=== PATIENT | male | born 1950 | race African-American/Black ===

== ENCOUNTER 2020-03-26 05:15 | Inpatient (IN) | payer MEDICARE, OTHER ==
[~2020-03-26] VITALS: Ht 177.8 cm; Wt 84.4 kg
[~2020-03-26 05:15] MED LIST: AMIODARONE HCL200 MG PO; ATENOLOL50 MG PO; BENICAR HCT 401 EAC1 PO; COUMADIN3 MG PO; GABAPENTIN300 MG PO; HYDRALAZINE HC100 MG PO; HYDRALAZINE HCL25 MG PO; ISORDIL TITRADOS5 MG PO; LASIX40 MG PO; LEVAQUIN250 MG PO; LEVEMIR100 UNIT/1 SQ; LIPITOR20 MG PO; METOPROLOL TART25 MG PO; NIFEDIPINE ER60 M1 PO; NOVOLOG100 UNITS/ SQ; PLAVIX75 MG PO; ULTRAM50 MG PO; ZOLPIDEM TARTRA10 MG PO
[2020-03-26] MEDS ORDERED: HYDRALAZINE HCL 20 MG/ML VIAL ONE (06:02)
[2020-03-26] MEDS ORDERED: ALBUTEROL/IPRATROPIUM 3 ML NEB ONE (06:28)
[2020-03-26] MEDS ORDERED: HYDRALAZINE HCL 20 MG/ML VIAL IV STA (06:35)
[2020-03-26 06:40] LABS: B-TYPE NATRIURETIC PEPTIDE2 270.6 pg/mL (0-100)
[2020-03-26] MEDS ORDERED: NITROGLYCERIN 2% OINT 1 GM PKT ONE (06:54)
[2020-03-26] MEDS ORDERED: CLOPIDOGREL75 MG PO (06:56)
[2020-03-26] MEDS ORDERED: OLMESARTAN-HCT1 EAC2 PO (06:56)
[2020-03-26] MEDS ORDERED: BELSOMRA10 MG PO (06:56)
[2020-03-26] MEDS ORDERED: ALBUTEROL/IPRATROPIUM 3 ML NEB NEB ONE (07:00)
[2020-03-26] MEDS ORDERED: NITROGLYCERIN 2% OINT 1 GM PKT TOP ONE (07:00)
[2020-03-26] MEDS ORDERED: HYDRALAZINE HCL 100 MG TABLET PO ONE (07:15)
[2020-03-26 07:22] LABS: BASOPHILS # (AUTO) 0.1 (0.0-0.1); BASOPHILS % 0.7 % (0.0-1.0); EOSINOPHILS # (AUTO) 0.2 (0.0-0.4); HEMATOCRIT 34.8 % (38.2-49.6); LYMPHOCYTES # (AUTO) 2.7 (1.0-3.2); LYMPHOCYTES % 17.5 % (18.0-39.1); MEAN CORPUSCULAR HEMOGLOBIN 32.3 pg (28-32); MEAN CORPUSCULAR HGB CONC 34.5 g/dL (31-35); MEAN CORPUSCULAR VOLUME 93.5 fL (81-99); MONOCYTES # (AUTO) 1.9 (0.2-0.8); MONOCYTES % 12.2 % (4.4-11.3); NEUTROPHILS # (AUTO) 10.5 (2.1-6.9); NEUTROPHILS % 68.2 % (38.7-80.0); PLATELET COUNT 439 x10e3/uL (140-360); RED BLOOD COUNT 3.72 x10e6/uL (4.3-5.7); RED CELL DISTRIBUTION WIDTH 18.2 % (11.7-14.4)
[2020-03-26] MEDS: CEFTRIAXONE SOD 1 GM/NS 50 ML 50 ML IV SCH (07:42)
[2020-03-26] MEDS: AZITHROMYCIN 500MG/NS 250 ML 250 ML IV SCH (07:42)
[2020-03-26] MEDS: ALBUTEROL SULF 0.083% NEB SOLN 3 ML NEB NEB SCH ×4 (08:00→19:08)
[2020-03-26] MEDS ORDERED: SODIUM CHLORIDE 0.9% 1000ML 1,000 ML IV SCH (08:00)
[2020-03-26 08:22] LABS: ALBUMIN 3.6 g/dL (3.5-5.0); ALBUMIN/GLOBULIN RATIO 0.8 (0.8-2.0); ANION GAP 20.7 mmol/L (8-16); CALCIUM 9.5 mg/dL (8.4-10.2); CREATININE, SERUM 2.64 mg/dL (0.72-1.25); POTASSIUM 3.7 mmol/L (3.5-5.1)
[2020-03-26] MEDS ORDERED: TEMAZEPAM 15 MG CAP PO PRN (08:30)
[2020-03-26] MEDS ORDERED: ONDANSETRON HCL INJ 2MG/ML 2ML 2 MG/ML VIAL IV PRN (08:30)
[2020-03-26] MEDS ORDERED: POLYETHYLENE GLYCOL 3350 17 GM PACK PO PRN (08:30)
[2020-03-26] MEDS ORDERED: ACETAMINOPHEN 325 MG TAB PO PRN (08:30)
[2020-03-26] MEDS ORDERED: HYDRALAZINE HCL 20 MG/ML VIAL IV PRN (08:30)
[2020-03-26 08:42] LABS: CREATINE KINASE MB 1.4 ng/mL (0-5.0)
[2020-03-26] MEDS ORDERED: TRAMADOL HCL 50 MG TAB PO PRN (09:00)
[2020-03-26] MEDS ORDERED: DEXTROSE 50% SYRINGE 50 ML IV PRN (09:00)
[2020-03-26 10:00] VITALS: BP 189/61
[2020-03-26 12:00] VITALS: BP 166/50
[2020-03-26] MEDS: NIFEDIPINE CR 30 MG TAB PO SCH (12:30)
[2020-03-26] MEDS: FAMOTIDINE 20 MG/2 ML VIAL IV SCH ×2 (12:30→18:32)
[2020-03-26] MEDS: DOCUSATE SODIUM 100 MG CAP PO SCH ×2 (12:30→17:00)
[2020-03-26] MEDS: METHYLPREDNISOLONE SOD SUCC 40 MG/ML VIAL 1ML IV SCH ×2 (12:30→21:00)
[2020-03-26] MEDS: HYDRALAZINE HCL 25 MG TAB PO SCH ×3 (12:30→21:00)
[2020-03-26] MEDS: CLOPIDOGREL BISULFATE 75 MG TAB PO SCH (12:30)
[2020-03-26 12:43] LABS: CREATINE KINASE MB 1.4 ng/mL (0-5.0)
[2020-03-26] MEDS: INSULIN REGULAR, HUMAN 100 UNIT/1 ML 3ML VIAL SQ SCH ×3 (14:45→21:00)
[2020-03-26] MEDS: IPRATROPIUM BROMIDE 0.02% 2.5 ML NEB NEB SCH ×2 (15:32→19:38)
[2020-03-26 16:00] VITALS: BP 171/48
[2020-03-26] MEDS: FUROSEMIDE 40 MG TAB PO SCH (18:32)
[2020-03-26 20:00] VITALS: BP 167/47
[2020-03-26 20:45] LABS: CREATINE KINASE MB 1.2 ng/mL (0-5.0)
[2020-03-26] MEDS: INSULIN GLARGINE 100 UNITS/ML VIAL SQ SCH (21:00)
[2020-03-26] MEDS: ATORVASTATIN 20 MG TAB PO SCH (21:00)
[2020-03-26 21:56] VITALS: BP 167/47
[2020-03-26] MEDS: ZOLPIDEM TARTRATE 10 MG TAB PO PRN (22:54)
[2020-03-27] VITALS (8 sets, daily range): BP systolic 121–159; BP diastolic 55–69
[2020-03-27] MEDS: IPRATROPIUM BROMIDE 0.02% 2.5 ML NEB NEB SCH ×4 (00:05→19:55)
[2020-03-27] MEDS: ALBUTEROL SULF 0.083% NEB SOLN 3 ML NEB NEB SCH ×6 (00:05→19:55)
[2020-03-27 06:45] LABS: BASOPHILS % 0.1 % (0.0-1.0); HEMATOCRIT 28.6 % (38.2-49.6); HEMOGLOBIN 10.1 g/dL (14.0-18.0); LYMPHOCYTES % 6.8 % (18.0-39.1); MEAN CORPUSCULAR HEMOGLOBIN 32.3 pg (28-32); MEAN CORPUSCULAR HGB CONC 35.3 g/dL (31-35); MEAN CORPUSCULAR VOLUME 91.4 fL (81-99); MONOCYTES # (AUTO) 1.3 (0.2-0.8); MONOCYTES % 8.6 % (4.4-11.3); NEUTROPHILS # (AUTO) 12.5 (2.1-6.9); PLATELET COUNT 392 x10e3/uL (140-360); RED BLOOD COUNT 3.13 x10e6/uL (4.3-5.7); RED CELL DISTRIBUTION WIDTH 17.5 % (11.7-14.4)
[2020-03-27 07:12] LABS: ALBUMIN/GLOBULIN RATIO 0.8 (0.8-2.0); ANION GAP 15.8 mmol/L (8-16); CALCIUM 8.4 mg/dL (8.4-10.2); CREATININE, SERUM 2.49 mg/dL (0.72-1.25); POTASSIUM 3.8 mmol/L (3.5-5.1)
[2020-03-27 07:24] LABS: CHOL/HDL RATIO 3.5 (3.9-4.7); MAGNESIUM 1.8 MG/DL (1.3-2.1); PHOSPHORUS 3.7 MG/DL (2.3-4.7)
[2020-03-27 07:46] LABS: THYROID STIMULATING HORMONE 0.243 uIU/mL (0.350-4.940)
[2020-03-27] MEDS: INSULIN REGULAR, HUMAN 100 UNIT/1 ML 3ML VIAL SQ SCH ×4 (08:15→20:55)
[2020-03-27] MEDS: CEFTRIAXONE SOD 1 GM/NS 50 ML 50 ML IV SCH (08:56)
[2020-03-27] MEDS: FAMOTIDINE 20 MG/2 ML VIAL IV SCH ×2 (08:59→17:49)
[2020-03-27] MEDS ORDERED: HYDRALAZINE HCL 100 MG TABLET PO SCH (09:00)
[2020-03-27] MEDS: METHYLPREDNISOLONE SOD SUCC 40 MG/ML VIAL 1ML IV SCH ×2 (09:01→20:43)
[2020-03-27] MEDS: FUROSEMIDE 40 MG TAB PO SCH ×2 (09:02→17:45)
[2020-03-27] MEDS: HYDRALAZINE HCL 25 MG TAB PO SCH ×3 (09:02→20:43)
[2020-03-27] MEDS: GABAPENTIN 300 MG CAP PO SCH (09:02)
[2020-03-27] MEDS: CLOPIDOGREL BISULFATE 75 MG TAB PO SCH (09:02)
[2020-03-27] MEDS: DOCUSATE SODIUM 100 MG CAP PO SCH ×2 (09:02→17:44)
[2020-03-27] MEDS: ATENOLOL 50 MG TAB PO SCH (09:03)
[2020-03-27] MEDS: NIFEDIPINE CR 30 MG TAB PO SCH (09:04)
[2020-03-27] MEDS: AZITHROMYCIN 500MG/NS 250 ML 250 ML IV SCH (09:57)
[2020-03-27] MEDS: APIXAB 2.5 MG TABLET PO SCH (17:45)
[2020-03-27] MEDS: METOPROLOL TARTRATE 25 MG TAB PO SCH (17:45)
[2020-03-27] MEDS: ATORVASTATIN 20 MG TAB PO SCH (20:43)
[2020-03-27] MEDS: INSULIN GLARGINE 100 UNITS/ML VIAL SQ SCH (20:55)
[2020-03-27] MEDS: ZOLPIDEM TARTRATE 10 MG TAB PO PRN (22:58)
[2020-03-28] VITALS (7 sets, daily range): BP systolic 122–156; BP diastolic 60–73
[2020-03-28] MEDS: ALBUTEROL SULF 0.083% NEB SOLN 3 ML NEB NEB SCH ×6 (00:01→19:10)
[2020-03-28] MEDS: IPRATROPIUM BROMIDE 0.02% 2.5 ML NEB NEB SCH ×4 (00:05→19:10)
[2020-03-28] MEDS: METOPROLOL TARTRATE 25 MG TAB PO SCH ×4 (06:00→18:37)
[2020-03-28 06:27] LABS: BASOPHILS % 0.1 % (0.0-1.0); HEMATOCRIT 28.3 % (38.2-49.6); HEMOGLOBIN 10.2 g/dL (14.0-18.0); LYMPHOCYTES % 7.2 % (18.0-39.1); MEAN CORPUSCULAR HEMOGLOBIN 34.3 pg (28-32); MEAN CORPUSCULAR VOLUME 95.3 fL (81-99); MONOCYTES # (AUTO) 0.8 (0.2-0.8); MONOCYTES % 6.1 % (4.4-11.3); NEUTROPHILS # (AUTO) 11.6 (2.1-6.9); NEUTROPHILS % 85.6 % (38.7-80.0); PLATELET COUNT 356 x10e3/uL (140-360); RED BLOOD COUNT 2.97 x10e6/uL (4.3-5.7)
[2020-03-28 06:58] LABS: ANION GAP 13.3 mmol/L (8-16); CALCIUM 8.3 mg/dL (8.4-10.2); CREATININE, SERUM 1.96 mg/dL (0.72-1.25); POTASSIUM 4.3 mmol/L (3.5-5.1)
[2020-03-28] MEDS: INSULIN REGULAR, HUMAN 100 UNIT/1 ML 3ML VIAL SQ SCH ×4 (08:28→21:15)
[2020-03-28] MEDS: DOCUSATE SODIUM 100 MG CAP PO SCH ×2 (09:07→18:37)
[2020-03-28] MEDS: HYDRALAZINE HCL 25 MG TAB PO SCH ×3 (09:07→21:00)
[2020-03-28] MEDS: GABAPENTIN 300 MG CAP PO SCH (09:08)
[2020-03-28] MEDS: FUROSEMIDE 40 MG TAB PO SCH ×2 (09:08→18:36)
[2020-03-28] MEDS: APIXAB 2.5 MG TABLET PO SCH ×2 (09:08→18:36)
[2020-03-28] MEDS: NIFEDIPINE CR 30 MG TAB PO SCH (09:09)
[2020-03-28] MEDS: ATENOLOL 50 MG TAB PO SCH (09:09)
[2020-03-28] MEDS: CEFTRIAXONE SOD 1 GM/NS 50 ML 50 ML IV SCH (09:18)
[2020-03-28] MEDS: FAMOTIDINE 20 MG/2 ML VIAL IV SCH ×2 (09:19→18:38)
[2020-03-28] MEDS: METHYLPREDNISOLONE SOD SUCC 40 MG/ML VIAL 1ML IV SCH ×2 (09:20→21:13)
[2020-03-28] MEDS: AZITHROMYCIN 500MG/NS 250 ML 250 ML IV SCH (09:56)
[2020-03-28] MEDS: ATORVASTATIN 20 MG TAB PO SCH (21:14)
[2020-03-28] MEDS: INSULIN GLARGINE 100 UNITS/ML VIAL SQ SCH (21:16)
[2020-03-28] MEDS: ZOLPIDEM TARTRATE 10 MG TAB PO PRN (23:00)
[2020-03-29] VITALS (9 sets, daily range): BP systolic 130–173; BP diastolic 54–99
[2020-03-29] MEDS: ALBUTEROL SULF 0.083% NEB SOLN 3 ML NEB NEB SCH ×6 (00:01→20:05)
[2020-03-29] MEDS: IPRATROPIUM BROMIDE 0.02% 2.5 ML NEB NEB SCH ×4 (01:00→19:25)
[2020-03-29] MEDS: METOPROLOL TARTRATE 25 MG TAB PO SCH ×2 (06:00)
[2020-03-29 06:25] LABS: BASOPHILS % 0.1 % (0.0-1.0); HEMATOCRIT 31.4 % (38.2-49.6); HEMOGLOBIN 10.4 g/dL (14.0-18.0); LYMPHOCYTES # (AUTO) 1.3 (1.0-3.2); LYMPHOCYTES % 9.7 % (18.0-39.1); MEAN CORPUSCULAR HEMOGLOBIN 30.2 pg (28-32); MEAN CORPUSCULAR HGB CONC 33.1 g/dL (31-35); MEAN CORPUSCULAR VOLUME 91.3 fL (81-99); MONOCYTES % 6.9 % (4.4-11.3); NEUTROPHILS # (AUTO) 11.3 (2.1-6.9); NEUTROPHILS % 82.1 % (38.7-80.0); PLATELET COUNT 412 x10e3/uL (140-360); RED BLOOD COUNT 3.44 x10e6/uL (4.3-5.7); RED CELL DISTRIBUTION WIDTH 16.8 % (11.7-14.4)
[2020-03-29 07:01] LABS: ALBUMIN 2.7 g/dL (3.5-5.0); ALBUMIN/GLOBULIN RATIO 0.8 (0.8-2.0); CALCIUM 8.1 mg/dL (8.4-10.2); CREATININE, SERUM 1.72 mg/dL (0.72-1.25)
[2020-03-29] MEDS: INSULIN REGULAR, HUMAN 100 UNIT/1 ML 3ML VIAL SQ SCH ×4 (09:08→21:00)
[2020-03-29] MEDS: DOCUSATE SODIUM 100 MG CAP PO SCH ×2 (09:10→16:50)
[2020-03-29] MEDS: HYDRALAZINE HCL 25 MG TAB PO SCH ×3 (09:10→21:00)
[2020-03-29] MEDS: APIXAB 2.5 MG TABLET PO SCH ×2 (09:10→16:50)
[2020-03-29] MEDS: GABAPENTIN 300 MG CAP PO SCH (09:10)
[2020-03-29] MEDS: FUROSEMIDE 40 MG TAB PO SCH ×2 (09:10→16:50)
[2020-03-29] MEDS: NIFEDIPINE CR 30 MG TAB PO SCH (09:11)
[2020-03-29] MEDS: ATENOLOL 50 MG TAB PO SCH (09:11)
[2020-03-29] MEDS: METHYLPREDNISOLONE SOD SUCC 40 MG/ML VIAL 1ML IV SCH ×2 (09:30→21:00)
[2020-03-29] MEDS: FAMOTIDINE 20 MG/2 ML VIAL IV SCH ×2 (09:30→16:50)
[2020-03-29] MEDS: CEFTRIAXONE SOD 1 GM/NS 50 ML 50 ML IV SCH (09:30)
[2020-03-29] MEDS: AZITHROMYCIN 500MG/NS 250 ML 250 ML IV SCH (10:00)
[2020-03-29] MEDS: METOPROLOL TARTRATE 50 MG TAB PO SCH (16:51)
[2020-03-29] MEDS: INSULIN GLARGINE 100 UNITS/ML VIAL SQ SCH (21:00)
[2020-03-29] MEDS: ATORVASTATIN 20 MG TAB PO SCH (21:00)
[2020-03-29] MEDS: ZOLPIDEM TARTRATE 10 MG TAB PO PRN (22:52)
[2020-03-29] MEDS ORDERED: BENZONATATE 100 MG CAP PO PRN (23:00)
[2020-03-30] VITALS (9 sets, daily range): BP systolic 158–195; BP diastolic 52–67
[2020-03-30] MEDS: IPRATROPIUM BROMIDE 0.02% 2.5 ML NEB NEB SCH ×4 (00:01→20:05)
[2020-03-30] MEDS: ALBUTEROL SULF 0.083% NEB SOLN 3 ML NEB NEB SCH ×5 (03:00→23:58)
[2020-03-30] MEDS: INSULIN REGULAR, HUMAN 100 UNIT/1 ML 3ML VIAL SQ SCH ×4 (07:40→21:00)
[2020-03-30] MEDS: CEFTRIAXONE SOD 1 GM/NS 50 ML 50 ML IV SCH (07:45)
[2020-03-30] MEDS: AZITHROMYCIN 500MG/NS 250 ML 250 ML IV SCH (08:39)
[2020-03-30] MEDS: METHYLPREDNISOLONE SOD SUCC 40 MG/ML VIAL 1ML IV SCH ×2 (08:42→21:00)
[2020-03-30] MEDS: FAMOTIDINE 20 MG/2 ML VIAL IV SCH ×2 (08:42→16:59)
[2020-03-30] MEDS: NIFEDIPINE CR 30 MG TAB PO SCH (08:43)
[2020-03-30] MEDS: DOCUSATE SODIUM 100 MG CAP PO SCH ×2 (08:43→17:03)
[2020-03-30] MEDS: METOPROLOL TARTRATE 50 MG TAB PO SCH ×2 (08:43→17:04)
[2020-03-30] MEDS: GABAPENTIN 300 MG CAP PO SCH (08:43)
[2020-03-30] MEDS: HYDRALAZINE HCL 25 MG TAB PO SCH ×3 (08:43→21:00)
[2020-03-30] MEDS: FUROSEMIDE 40 MG TAB PO SCH ×2 (08:43→17:03)
[2020-03-30] MEDS: APIXAB 2.5 MG TABLET PO SCH ×2 (08:43→17:03)
[2020-03-30] MEDS: METOPROLOL TARTRATE INJ 1 MG/ML VIAL IV PRN (11:36)
[2020-03-30] MEDS: ATORVASTATIN 20 MG TAB PO SCH (21:00)
[2020-03-30] MEDS: INSULIN GLARGINE 100 UNITS/ML VIAL SQ SCH (21:00)
[2020-03-30] MEDS: ZOLPIDEM TARTRATE 10 MG TAB PO PRN (23:30)
[2020-03-31] VITALS (8 sets, daily range): BP systolic 119–190; BP diastolic 50–69
[2020-03-31] MEDS: ALBUTEROL SULF 0.083% NEB SOLN 3 ML NEB NEB SCH ×7 (00:07→23:00)
[2020-03-31] MEDS: METOPROLOL TARTRATE INJ 1 MG/ML VIAL IV PRN (00:42)
[2020-03-31] MEDS: IPRATROPIUM BROMIDE 0.02% 2.5 ML NEB NEB SCH ×4 (03:30→19:10)
[2020-03-31] MEDS: HYDRALAZINE HCL 25 MG TAB PO SCH ×3 (05:00→21:20)
[2020-03-31] MEDS: CEFTRIAXONE SOD 1 GM/NS 50 ML 50 ML IV SCH (07:18)
[2020-03-31] MEDS: AZITHROMYCIN 500MG/NS 250 ML 250 ML IV SCH (08:00)
[2020-03-31] MEDS: APIXAB 2.5 MG TABLET PO SCH ×2 (08:09→16:28)
[2020-03-31] MEDS: METHYLPREDNISOLONE SOD SUCC 40 MG/ML VIAL 1ML IV SCH ×2 (08:09→21:20)
[2020-03-31] MEDS: FAMOTIDINE 20 MG/2 ML VIAL IV SCH ×2 (08:09→16:28)
[2020-03-31] MEDS: FUROSEMIDE 40 MG TAB PO SCH ×2 (08:09→16:28)
[2020-03-31] MEDS: DOCUSATE SODIUM 100 MG CAP PO SCH ×2 (08:09→16:28)
[2020-03-31] MEDS: INSULIN REGULAR, HUMAN 100 UNIT/1 ML 3ML VIAL SQ SCH ×4 (08:09→21:20)
[2020-03-31] MEDS: METOPROLOL TARTRATE 50 MG TAB PO SCH ×2 (08:10→16:28)
[2020-03-31] MEDS: GABAPENTIN 300 MG CAP PO SCH (08:10)
[2020-03-31] MEDS: NIFEDIPINE CR 30 MG TAB PO SCH (08:10)
[2020-03-31 12:44] LABS: BASOPHILS % 0.1 % (0.0-1.0); EOSINOPHILS % 0.1 % (0.0-6.0); HEMATOCRIT 32.5 % (38.2-49.6); HEMOGLOBIN 10.8 g/dL (14.0-18.0); LYMPHOCYTES # (AUTO) 0.8 (1.0-3.2); LYMPHOCYTES % 4.8 % (18.0-39.1); MEAN CORPUSCULAR HEMOGLOBIN 30.1 pg (28-32); MEAN CORPUSCULAR HGB CONC 33.2 g/dL (31-35); MEAN CORPUSCULAR VOLUME 90.5 fL (81-99); MONOCYTES # (AUTO) 0.7 (0.2-0.8); MONOCYTES % 4.3 % (4.4-11.3); NEUTROPHILS # (AUTO) 14.9 (2.1-6.9); NEUTROPHILS % 89.1 % (38.7-80.0); PLATELET COUNT 429 x10e3/uL (140-360); RED BLOOD COUNT 3.59 x10e6/uL (4.3-5.7); RED CELL DISTRIBUTION WIDTH 17.3 % (11.7-14.4)
[2020-03-31 13:07] LABS: ALBUMIN 2.8 g/dL (3.5-5.0); ALBUMIN/GLOBULIN RATIO 0.8 (0.8-2.0); ANION GAP 13.8 mmol/L (8-16); CALCIUM 8.4 mg/dL (8.4-10.2); CREATININE, SERUM 1.43 mg/dL (0.72-1.25); POTASSIUM 3.8 mmol/L (3.5-5.1)
[2020-03-31] MEDS: INSULIN GLARGINE 100 UNITS/ML VIAL SQ SCH (21:20)
[2020-03-31] MEDS: ATORVASTATIN 20 MG TAB PO SCH (21:20)
[2020-03-31] MEDS: ZOLPIDEM TARTRATE 10 MG TAB PO PRN (23:41)
[2020-04-01] VITALS (8 sets, daily range): BP systolic 152–187; BP diastolic 52–62
[2020-04-01] MEDS: IPRATROPIUM BROMIDE 0.02% 2.5 ML NEB NEB SCH ×4 (00:01→15:18)
[2020-04-01] MEDS: ALBUTEROL SULF 0.083% NEB SOLN 3 ML NEB NEB SCH ×5 (00:01→15:18)
[2020-04-01] MEDS: HYDRALAZINE HCL 25 MG TAB PO SCH (04:48)
[2020-04-01] MEDS: CEFTRIAXONE SOD 1 GM/NS 50 ML 50 ML IV SCH (08:17)
[2020-04-01] MEDS: AZITHROMYCIN 500MG/NS 250 ML 250 ML IV SCH (08:21)
[2020-04-01] MEDS: FAMOTIDINE 20 MG/2 ML VIAL IV SCH (08:22)
[2020-04-01] MEDS: METHYLPREDNISOLONE SOD SUCC 40 MG/ML VIAL 1ML IV SCH (08:24)
[2020-04-01] MEDS: FUROSEMIDE 40 MG TAB PO SCH (08:24)
[2020-04-01] MEDS: DOCUSATE SODIUM 100 MG CAP PO SCH (08:24)
[2020-04-01] MEDS: APIXAB 2.5 MG TABLET PO SCH (08:24)
[2020-04-01] MEDS: GABAPENTIN 300 MG CAP PO SCH (08:25)
[2020-04-01] MEDS: METOPROLOL TARTRATE 50 MG TAB PO SCH (08:25)
[2020-04-01] MEDS: NIFEDIPINE CR 30 MG TAB PO SCH (08:26)
[2020-04-01] MEDS: INSULIN REGULAR, HUMAN 100 UNIT/1 ML 3ML VIAL SQ SCH ×2 (09:52→12:10)
[2020-04-01] MEDS ORDERED: HYDRALAZINE HCL 25 MG TAB PO SCH (11:15)
[2020-04-01] MEDS ORDERED: TESSALON PERLE100 MG PO (16:05)
[2020-04-01] MEDS ORDERED: HYDRALAZINE HCL25 MG PO (16:05)
[2020-04-01] MEDS ORDERED: NIFEDIPINE ER30 M1 PO (16:05)
[2020-04-01] MEDS ORDERED: ACETAMINOPHEN325 M1 PO (16:05)
[2020-04-01] MEDS ORDERED: METOPROLOL TART50 MG PO (16:05)
[2020-04-01] MEDS ORDERED: IPRATROPIU0.2 MG/1 M NEB (16:05)
[2020-04-01] MEDS ORDERED: ALBUTEROL2.5 MG/3 M NEB (16:05)
[2020-04-01] MEDS ORDERED: ELIQUIS5 MG PO (16:05)
[2020-04-01] MEDS ORDERED: PREDNISONE20 MG PO (16:16)
[2020-04-01] MEDS ORDERED: AZITHROMYCIN500 MG PO (16:20)
[2020-04-01] MEDS ORDERED: CEFUROXIME250 MG PO (16:20)
[2020-04-01] MEDS ORDERED: APIXABAN 5 MG TABLET PO SCH (17:00)
[2020-04-01] MEDS ORDERED: APIXAB 2.5 MG TABLET PO SCH (17:00)
== END 2020-04-01 17:45 | disposition home or self-care (01) | DRG 871 ==
LOC: ER 05:20 → ERHOLD 07:55 → MED/SURG3 09:37
PROVIDERS: ADMIT Internal Medicine Critical Care Medicine; ATTEND Internal Medicine Critical Care Medicine
PROC: 05HY33Z Insertion of Infusion Device into Upper Vein, Percutaneous Approach (ICD-10-PCS; principal; 2020-03-30)
DX: A41.9 Sepsis, unspecified organism (principal); J15.9 Unspecified bacterial pneumonia; J44.1 Chronic obstructive pulmonary disease with (acute) exacerbation; J44.0 Chronic obstructive pulmonary disease with (acute) lower respiratory infection; I48.20 Chronic atrial fibrillation, unspecified; I13.0 Hypertensive heart and chronic kidney disease with heart failure and stage 1 through stage 4 chronic kidney disease, or unspecified chronic kidney disease; I50.22 Chronic systolic (congestive) heart failure; J45.901 Unspecified asthma with (acute) exacerbation; N17.9 Acute kidney failure, unspecified; E11.22 Type 2 diabetes mellitus with diabetic chronic kidney disease; E11.65 Type 2 diabetes mellitus with hyperglycemia; E11.51 Type 2 diabetes mellitus with diabetic peripheral angiopathy without gangrene; I25.2 Old myocardial infarction; F17.210 Nicotine dependence, cigarettes, uncomplicated; I16.0 Hypertensive urgency; Z79.4 Long term (current) use of insulin; E78.00 Pure hypercholesterolemia, unspecified; Z87.891 Personal history of nicotine dependence; N18.31 Chronic kidney disease, stage 3a
CPT/HCPCS: 36415; 71045; 71250; 80048; 80053; 80061; 82550; 82553; 82948; 83036; 83605; 83735; 83880; 84100; 84443; 84484; 85025; 87040; 93005; 93306; 94640; 96372; 99284; J0360; J0456; J0696; J1815; J1817; J2920; J7030; U0002

== ENCOUNTER → 2020-05-13 | Outpatient (CLI) | payer MEDICARE, OTHER ==
[~2020-05-13] MED LIST changes: +ACETAMINOPHEN325 M1 PO; +ALBUTEROL2.5 MG/3 M NEB; +AZITHROMYCIN500 MG PO; +BELSOMRA10 MG PO; +CEFUROXIME250 MG PO; +CLOPIDOGREL75 MG PO; +ELIQUIS5 MG PO; +IPRATROPIU0.2 MG/1 M NEB; +METOPROLOL TART50 MG PO; +NIFEDIPINE ER30 M1 PO; +OLMESARTAN-HCT1 EAC2 PO; +PREDNISONE20 MG PO; +TESSALON PERLE100 MG PO
== END ==
LOC: CT 13:48
PROVIDERS: ATTEND Internal Medicine Critical Care Medicine
DX: Z09 Encounter for follow-up examination after completed treatment for conditions other than malignant neoplasm (principal); J18.9 Pneumonia, unspecified organism
CPT/HCPCS: 71250

== ENCOUNTER → 2020-06-25 | Day surgery (SDC) | payer MEDICARE, OTHER ==
[2020-06-21 10:29] LABS: BASOPHILS # (AUTO) 0.1 (0.0-0.1); BASOPHILS % 0.8 % (0.0-1.0); EOSINOPHILS # (AUTO) 1.7 (0.0-0.4); EOSINOPHILS % 15.8 % (0.0-6.0); HEMATOCRIT 35.6 % (38.2-49.6); HEMOGLOBIN 11.2 g/dL (14.0-18.0); LYMPHOCYTES # (AUTO) 2.1 (1.0-3.2); MEAN CORPUSCULAR HEMOGLOBIN 27.9 pg (28-32); MEAN CORPUSCULAR HGB CONC 31.5 g/dL (31-35); MEAN CORPUSCULAR VOLUME 88.6 fL (81-99); MONOCYTES # (AUTO) 1.1 (0.2-0.8); MONOCYTES % 10.6 % (4.4-11.3); NEUTROPHILS # (AUTO) 5.6 (2.1-6.9); NEUTROPHILS % 52.4 % (38.7-80.0); PLATELET COUNT 407 x10e3/uL (140-360); RED BLOOD COUNT 4.02 x10e6/uL (4.3-5.7); RED CELL DISTRIBUTION WIDTH 16.2 % (11.7-14.4)
[2020-06-21 11:02] LABS: ALBUMIN 3.5 g/dL (3.5-5.0); ALBUMIN/GLOBULIN RATIO 0.9 (0.8-2.0); ANION GAP 14.1 mmol/L (8-16); CALCIUM 8.7 mg/dL (8.4-10.2); CREATININE, SERUM 1.59 mg/dL (0.72-1.25); POTASSIUM 4.1 mmol/L (3.5-5.1)
[2020-06-25] VITALS (9 sets, daily range): BP systolic 148–185; BP diastolic 51–86
[~2020-06-25] VITALS: Ht 177.8 cm; Wt 75.3 kg
[~2020-06-25] MED LIST changes: +ALPRAZOLAM 0.5 MG TAB ONE; +BENICAR20 MG PO; +DIPHENHYDRAMINE HCL 25 MG CAP ONE; +FENTANYL CITRATE/PF 100MCG/2 ML INJ ONE; +HEPARIN SOD/SOD CHLORIDE 2,000 ML ONE; +HUMALOG100 UNIT/1 SC; +IOPAMIDOL 370 MG/ML 200 ML INFUS..BTL INJ ONE; +LIDOCAINE HCL 2% LOCAL 20 ML VIAL ONE; +MIDAZOLAM HCL 2 MG/2 ML VIAL ONE; +PROVENTIL HFA6.7 GM INH; +SODIUM CHLORIDE 0.9% 1000ML 1,000 ML ONE
== END | disposition home or self-care (01) ==
LOC: CATH LAB 13:57
PROVIDERS: ATTEND Internal Medicine Interventional Cardiology
DX: I25.119 Atherosclerotic heart disease of native coronary artery with unspecified angina pectoris (principal); R94.39 Abnormal result of other cardiovascular function study; I48.91 Unspecified atrial fibrillation; Z01.812 Encounter for preprocedural laboratory examination; Z20.822 Contact with and (suspected) exposure to COVID-19; Z79.02 Long term (current) use of antithrombotics/antiplatelets; Z79.4 Long term (current) use of insulin
CPT/HCPCS: 36415; 76937; 80053; 85025; 93454; 99152; C1887; J2001; J2250; J3010; J7030; Q9967; U0002

== ENCOUNTER 2020-08-31 15:18 | Inpatient (IN) | payer MEDICARE, OTHER ==
[~2020-08-31] VITALS: Ht 177.8 cm; Wt 75.3 kg
[~2020-08-31 15:18] MED LIST changes: -ALPRAZOLAM 0.5 MG TAB ONE; -DIPHENHYDRAMINE HCL 25 MG CAP ONE; -FENTANYL CITRATE/PF 100MCG/2 ML INJ ONE; -HEPARIN SOD/SOD CHLORIDE 2,000 ML ONE; -IOPAMIDOL 370 MG/ML 200 ML INFUS..BTL INJ ONE; -LIDOCAINE HCL 2% LOCAL 20 ML VIAL ONE; -MIDAZOLAM HCL 2 MG/2 ML VIAL ONE; -SODIUM CHLORIDE 0.9% 1000ML 1,000 ML ONE
[2020-08-31] MEDS ORDERED: METHYLPREDNISOLONE SOD SUCC 125 MG/2ML VIAL IV STA (15:50)
[2020-08-31 16:08] LABS: BASOPHILS # (AUTO) 0.1 (0.0-0.1); BASOPHILS % 0.7 % (0.0-1.0); EOSINOPHILS # (AUTO) 0.6 (0.0-0.4); EOSINOPHILS % 4.5 % (0.0-6.0); HEMATOCRIT 36.9 % (38.2-49.6); HEMOGLOBIN 11.4 g/dL (14.0-18.0); LYMPHOCYTES # (AUTO) 2.1 (1.0-3.2); LYMPHOCYTES % 16.9 % (18.0-39.1); MEAN CORPUSCULAR HGB CONC 30.9 g/dL (31-35); MEAN CORPUSCULAR VOLUME 87.4 fL (81-99); MONOCYTES # (AUTO) 1.2 (0.2-0.8); MONOCYTES % 9.3 % (4.4-11.3); NEUTROPHILS # (AUTO) 8.5 (2.1-6.9); NEUTROPHILS % 68.2 % (38.7-80.0); PLATELET COUNT 437 x10e3/uL (140-360); RED BLOOD COUNT 4.22 x10e6/uL (4.3-5.7); RED CELL DISTRIBUTION WIDTH 16.9 % (11.7-14.4)
[2020-08-31 16:12] LABS: INR 1.12; PROTHROMBIN TIME 15.1 seconds (11.9-14.5)
[2020-08-31 16:13] LABS: PARTIAL THROMBOPLASTIN TIME 35.3 seconds (23.8-35.5)
[2020-08-31 16:21] LABS: ALBUMIN 3.8 g/dL (3.5-5.0); ALBUMIN/GLOBULIN RATIO 0.7 (0.8-2.0); CALCIUM 9.3 mg/dL (8.4-10.2); CREATININE, SERUM 1.58 mg/dL (0.72-1.25)
[2020-08-31 16:32] LABS: CREATINE KINASE MB 0.9 ng/mL (0-5.0)
[2020-08-31] MEDS ORDERED: ALBUTEROL/IPRATROPIUM 3 ML NEB NEB ONE (16:45)
[2020-08-31] MEDS ORDERED: ASPIRIN 81 MG CHEW TAB PO ONE (19:00)
[2020-08-31] MEDS ORDERED: FUROSEMIDE INJ 10 MG/ML 4 ML VIAL IV ONE (19:30)
[2020-08-31 20:37] LABS: CLARITY,URINE CLEAR (CLEAR); COLOR,URINE YELLOW (YELLOW); LEUKOCYTE ESTERASE ,URINE NEGATIVE (NEGATIVE); NITRITE,URINE NEGATIVE (NEGATIVE); PROTEIN,URINE DIPSTICK >=300 (NEGATIVE)
[2020-08-31 20:38] LABS: KETONES,URINE NEGATIVE (NEGATIVE); URINE UROBILINOGEN 1 mg/dL (0.2 - 1)
[2020-08-31 20:55] LABS: BACTERIA,URINE RARE /HPF; EPITHELIAL CELLS,URINE RARE /LPF; RBC,URINE 0-5 /HPF (0-5); TRANSITIONAL EPI CELLS,URINE RARE; WBC,URINE (MAN) 0-5 /HPF (0-5)
[2020-08-31] MEDS ORDERED: DEXTROSE 50% SYRINGE 50 ML IV PRN (21:00)
[2020-08-31] MEDS ORDERED: NON-FORMULARY MEDICATION (Insulin Detemir (Levemir) 10 UNITS) SQ PRN (21:00)
[2020-08-31] MEDS: HYDRALAZINE HCL 100 MG TABLET PO SCH (21:00)
[2020-08-31] MEDS: ATENOLOL 50 MG TAB PO SCH (21:00)
[2020-08-31] MEDS ORDERED: IOPAMIDOL 370 MG/ML 200 ML INFUS..BTL INJ ONE (21:52)
[2020-08-31] MEDS ORDERED: SODIUM CHLORIDE 0.9% 50ML 50 ML ONE (21:52)
[2020-08-31 23:01] VITALS: BP 185/82
[2020-08-31 23:11] VITALS: BP 185/82
[2020-08-31 23:18] VITALS: BP 185/82
[2020-09-01] VITALS (9 sets, daily range): BP systolic 130–182; BP diastolic 44–60
[2020-09-01] MEDS: INSULIN REGULAR, HUMAN 100 UNIT/1 ML 3ML VIAL SQ SCH ×5 (00:33→21:00)
[2020-09-01] MEDS: HYDRALAZINE HCL 20 MG/ML VIAL IV PRN ×2 (00:54→04:36)
[2020-09-01 08:00] LABS: CREATINE KINASE MB 0.7 ng/mL (0-5.0)
[2020-09-01] MEDS ORDERED: HYDROCHLOROTHIA25 MG PO (08:29)
[2020-09-01] MEDS ORDERED: BELSOMRA10 MG PO (08:29)
[2020-09-01] MEDS ORDERED: ATORVASTATIN CA20 MG PO (08:29)
[2020-09-01] MEDS: APIXABAN 5 MG TABLET PO SCH ×2 (08:34→16:15)
[2020-09-01] MEDS: FUROSEMIDE INJ 10 MG/ML 4 ML VIAL IV SCH ×2 (08:34→16:15)
[2020-09-01] MEDS: OLMESARTAN 20 MG TAB PO SCH (08:34)
[2020-09-01] MEDS: GABAPENTIN 300 MG CAP PO SCH ×2 (08:34→16:15)
[2020-09-01] MEDS: HYDRALAZINE HCL 100 MG TABLET PO SCH ×2 (08:34→16:15)
[2020-09-01] MEDS: NIFEDIPINE CR 30 MG TAB PO SCH (08:34)
[2020-09-01] MEDS: ATENOLOL 50 MG TAB PO SCH ×2 (08:35→16:15)
[2020-09-01] MEDS: TRAMADOL HCL 50 MG TAB PO SCH ×2 (08:35→16:15)
[2020-09-01] MEDS ORDERED: HYDRALAZINE HCL 100 MG TABLET PO SCH (09:00)
[2020-09-01] MEDS ORDERED: ATENOLOL 50 MG TAB PO SCH (09:00)
[2020-09-01 16:13] LABS: CREATINE KINASE MB 0.7 ng/mL (0-5.0)
[2020-09-01] MEDS: INSULIN GLARGINE 100 UNITS/ML VIAL SQ SCH (21:00)
[2020-09-01] MEDS: MELATONIN 5 MG TABLET PO PRN (23:33)
[2020-09-02] VITALS (10 sets, daily range): BP systolic 141–174; BP diastolic 50–61
[2020-09-02] MEDS: INSULIN REGULAR, HUMAN 100 UNIT/1 ML 3ML VIAL SQ SCH ×4 (07:30→20:38)
[2020-09-02] MEDS: FUROSEMIDE INJ 10 MG/ML 4 ML VIAL IV SCH ×2 (08:47→16:38)
[2020-09-02] MEDS: APIXABAN 5 MG TABLET PO SCH ×2 (08:49→16:38)
[2020-09-02] MEDS: GABAPENTIN 300 MG CAP PO SCH ×2 (08:49→16:38)
[2020-09-02] MEDS: OLMESARTAN 20 MG TAB PO SCH (08:49)
[2020-09-02] MEDS: HYDRALAZINE HCL 100 MG TABLET PO SCH ×2 (08:49→16:38)
[2020-09-02] MEDS: NIFEDIPINE CR 30 MG TAB PO SCH (08:50)
[2020-09-02] MEDS: TRAMADOL HCL 50 MG TAB PO SCH ×2 (08:55→16:39)
[2020-09-02] MEDS: ATENOLOL 50 MG TAB PO SCH ×2 (09:00→16:39)
[2020-09-02] MEDS ORDERED: ALBUTEROL/IPRATROPIUM 3 ML NEB NEB PRN (13:15)
[2020-09-02] MEDS ORDERED: ONDANSETRON HCL INJ 2MG/ML 2ML 2 MG/ML VIAL IV PRN (13:45)
[2020-09-02] MEDS ORDERED: TEMAZEPAM 15 MG CAP PO PRN (13:45)
[2020-09-02] MEDS ORDERED: ACETAMINOPHEN 325 MG TAB PO PRN (13:45)
[2020-09-02] MEDS ORDERED: POLYETHYLENE GLYCOL 3350 17 GM PACK PO PRN (13:45)
[2020-09-02] MEDS: DOCUSATE SODIUM 100 MG CAP PO SCH (16:38)
[2020-09-02] MEDS: INSULIN GLARGINE 100 UNITS/ML VIAL SQ SCH (20:38)
[2020-09-03] VITALS: BP 154/61
[2020-09-03] MEDS: MELATONIN 5 MG TABLET PO PRN (00:01)
[2020-09-03 04:00] VITALS: BP 162/58
[2020-09-03 06:35] LABS: BASOPHILS # (AUTO) 0.1 (0.0-0.1); BASOPHILS % 0.9 % (0.0-1.0); EOSINOPHILS # (AUTO) 0.8 (0.0-0.4); EOSINOPHILS % 8.9 % (0.0-6.0); HEMATOCRIT 31.8 % (38.2-49.6); LYMPHOCYTES # (AUTO) 2.2 (1.0-3.2); LYMPHOCYTES % 24.8 % (18.0-39.1); MEAN CORPUSCULAR HEMOGLOBIN 27.6 pg (28-32); MEAN CORPUSCULAR HGB CONC 31.4 g/dL (31-35); MEAN CORPUSCULAR VOLUME 87.8 fL (81-99); MONOCYTES % 11.4 % (4.4-11.3); NEUTROPHILS # (AUTO) 4.8 (2.1-6.9); NEUTROPHILS % 53.7 % (38.7-80.0); PLATELET COUNT 428 x10e3/uL (140-360); RED BLOOD COUNT 3.62 x10e6/uL (4.3-5.7); RED CELL DISTRIBUTION WIDTH 16.4 % (11.7-14.4)
[2020-09-03] MEDS: INSULIN REGULAR, HUMAN 100 UNIT/1 ML 3ML VIAL SQ SCH ×2 (07:30→11:30)
[2020-09-03 07:40] LABS: ANION GAP 16.7 mmol/L (8-16); CALCIUM 7.9 mg/dL (8.4-10.2); MAGNESIUM 1.9 MG/DL (1.3-2.1); PHOSPHORUS 3.7 MG/DL (2.3-4.7); POTASSIUM 3.7 mmol/L (3.5-5.1)
[2020-09-03 08:29] VITALS: BP 166/59
[2020-09-03 08:31] VITALS: BP 166/59
[2020-09-03] MEDS ORDERED: METOPROLOL SUCCINATE 25 MG TAB XL PO SCH (09:00)
[2020-09-03] MEDS: OLMESARTAN 20 MG TAB PO SCH (09:23)
[2020-09-03] MEDS: DOCUSATE SODIUM 100 MG CAP PO SCH (09:23)
[2020-09-03] MEDS: FUROSEMIDE INJ 10 MG/ML 4 ML VIAL IV SCH (09:23)
[2020-09-03] MEDS: APIXABAN 5 MG TABLET PO SCH (09:23)
[2020-09-03] MEDS: NIFEDIPINE CR 30 MG TAB PO SCH (09:24)
[2020-09-03] MEDS: GABAPENTIN 300 MG CAP PO SCH (09:24)
[2020-09-03] MEDS: TRAMADOL HCL 50 MG TAB PO SCH (09:24)
[2020-09-03] MEDS: HYDRALAZINE HCL 100 MG TABLET PO SCH (09:24)
[2020-09-03 11:48] VITALS: BP 170/65
[2020-09-03] MEDS ORDERED: TOPROL XL25 MG PO (13:04)
[2020-09-03] MEDS ORDERED: FUROSEMIDE40 MG PO (13:04)
[2020-09-03] MEDS ORDERED: FUROSEMIDE INJ 10 MG/ML 2 ML VIAL IV SCH (17:00)
== END 2020-09-03 14:12 | disposition home or self-care (01) | DRG 190 ==
LOC: ER 15:32 → ERHOLD 18:58 → IMCU 22:24
PROVIDERS: ADMIT Internal Medicine; ATTEND Internal Medicine
DX: J44.1 Chronic obstructive pulmonary disease with (acute) exacerbation (principal); I50.33 Acute on chronic diastolic (congestive) heart failure; J45.901 Unspecified asthma with (acute) exacerbation; I11.0 Hypertensive heart disease with heart failure; I48.91 Unspecified atrial fibrillation; J44.9 Chronic obstructive pulmonary disease, unspecified; F17.200 Nicotine dependence, unspecified, uncomplicated; I25.10 Atherosclerotic heart disease of native coronary artery without angina pectoris; Z95.5 Presence of coronary angioplasty implant and graft; E11.51 Type 2 diabetes mellitus with diabetic peripheral angiopathy without gangrene; Z79.899 Other long term (current) drug therapy; R91.8 Other nonspecific abnormal finding of lung field; Z20.822 Contact with and (suspected) exposure to COVID-19
CPT/HCPCS: 36415; 71045; 71260; 80048; 80053; 81001; 82550; 82553; 82948; 83735; 83880; 84100; 84484; 85025; 85610; 85730; 87040; 87086; 93005; 93306; 93970; 99285; J0360; J1815; J1817; J1940; J2930; Q9967; U0002

== ENCOUNTER → 2020-12-31 | Day surgery (SDC) | payer MEDICARE, OTHER ==
[2020-12-27 09:43] LABS: BASOPHILS # (AUTO) 0.1 (0.0-0.1); BASOPHILS % 0.9 % (0.0-1.0); EOSINOPHILS # (AUTO) 1.4 (0.0-0.4); EOSINOPHILS % 15.1 % (0.0-6.0); HEMATOCRIT 38.8 % (38.2-49.6); LYMPHOCYTES # (AUTO) 1.9 (1.0-3.2); MEAN CORPUSCULAR HEMOGLOBIN 27.7 pg (28-32); MEAN CORPUSCULAR HGB CONC 30.9 g/dL (31-35); MEAN CORPUSCULAR VOLUME 89.6 fL (81-99); MONOCYTES % 10.3 % (4.4-11.3); NEUTROPHILS % 53.3 % (38.7-80.0); PLATELET COUNT 316 x10e3/uL (140-360); RED BLOOD COUNT 4.33 x10e6/uL (4.3-5.7); RED CELL DISTRIBUTION WIDTH 17.3 % (11.7-14.4)
[2020-12-27 10:11] LABS: ALBUMIN 3.6 g/dL (3.5-5.0); ALBUMIN/GLOBULIN RATIO 0.9 (0.8-2.0); ANION GAP 14.1 mmol/L (8-16); CALCIUM 8.9 mg/dL (8.4-10.2); CREATININE, SERUM 2.54 mg/dL (0.72-1.25); POTASSIUM 4.1 mmol/L (3.5-5.1)
[~2020-12-31] VITALS: Ht 177.8 cm; Wt 75.7 kg
[2020-12-31] VITALS (19 sets, daily range): BP systolic 94–179; BP diastolic 47–88
[~2020-12-31] MED LIST changes: +ALPRAZOLAM 0.5 MG TAB ONE; +ATORVASTATIN CA20 MG PO; +DIPHENHYDRAMINE HCL 25 MG CAP ONE; +FENTANYL CITRATE/PF 100MCG/2 ML INJ ONE; +FUROSEMIDE40 MG PO; +HEPARIN SOD/SOD CHLORIDE 2,000 ML ONE; +HYDROCHLOROTHIA25 MG PO; +IOPAMIDOL 300MG/ML 100 ML INFUS..BTL IV ONE; +LATANOPROST2.5 ML OP; +LIDOCAINE HCL 2% LOCAL 20 ML VIAL ONE; +MIDAZOLAM HCL 2 MG/2 ML VIAL ONE; +SODIUM CHLORIDE 0.9% 1000ML 1,000 ML ONE; +TOPROL XL25 MG PO; +TORSEMIDE20 MG PO
== END | disposition home or self-care (01) ==
LOC: CATH LAB 13:12
PROVIDERS: ATTEND Internal Medicine Interventional Cardiology
DX: I70.213 Atherosclerosis of native arteries of extremities with intermittent claudication, bilateral legs (principal); Z95.828 Presence of other vascular implants and grafts; F17.210 Nicotine dependence, cigarettes, uncomplicated; R86.9 Unspecified abnormal finding in specimens from male genital organs; E11.9 Type 2 diabetes mellitus without complications; I10 Essential (primary) hypertension
CPT/HCPCS: 36247; 36415 ×2; 76937; 80053; 82948; 85025; C1769; J2001; J2250; J3010; J7030; Q9967; 75630; 99152

== ENCOUNTER 2022-02-21 10:12 | Inpatient (IN) | payer MEDICARE, OTHER ==
[~2022-02-21] VITALS: Ht 177.8 cm; Wt 75.7 kg
[~2022-02-21 10:12] MED LIST changes: -ALPRAZOLAM 0.5 MG TAB ONE; -DIPHENHYDRAMINE HCL 25 MG CAP ONE; -FENTANYL CITRATE/PF 100MCG/2 ML INJ ONE; -HEPARIN SOD/SOD CHLORIDE 2,000 ML ONE; -IOPAMIDOL 300MG/ML 100 ML INFUS..BTL IV ONE; -LIDOCAINE HCL 2% LOCAL 20 ML VIAL ONE; -MIDAZOLAM HCL 2 MG/2 ML VIAL ONE; -SODIUM CHLORIDE 0.9% 1000ML 1,000 ML ONE
[2022-02-21] MEDS ORDERED: ALBUTEROL/IPRATROPIUM 3 ML NEB NEB ONE (10:30)
[2022-02-21 10:58] LABS: BASOPHILS # (AUTO) 0.1 (0.0-0.1); BASOPHILS % 0.8 % (0.0-1.0); EOSINOPHILS # (AUTO) 0.6 (0.0-0.4); EOSINOPHILS % 4.9 % (0.0-6.0); HEMATOCRIT 42.3 % (38.2-49.6); HEMOGLOBIN 13.2 g/dL (14.0-18.0); LYMPHOCYTES # (AUTO) 3.3 (1.0-3.2); LYMPHOCYTES % 27.9 % (18.0-39.1); MEAN CORPUSCULAR HEMOGLOBIN 28.3 pg (28-32); MEAN CORPUSCULAR HGB CONC 31.2 g/dL (31-35); MEAN CORPUSCULAR VOLUME 90.8 fL (81-99); MONOCYTES # (AUTO) 0.9 (0.2-0.8); MONOCYTES % 7.5 % (4.4-11.3); NEUTROPHILS % 58.6 % (38.7-80.0); PLATELET COUNT 360 x10e3/uL (140-360); RED BLOOD COUNT 4.66 x10e6/uL (4.3-5.7); RED CELL DISTRIBUTION WIDTH 15.8 % (11.7-14.4)
[2022-02-21 11:22] LABS: ALBUMIN 3.9 g/dL (3.5-5.0); ALBUMIN/GLOBULIN RATIO 0.8 (0.8-2.0); CALCIUM 9.7 mg/dL (8.4-10.2); CREATININE, SERUM 2.33 mg/dL (0.72-1.25)
[2022-02-21] MEDS ORDERED: ONDANSETRON HCL INJ 2MG/ML 2ML 2 MG/ML VIAL IV PRN (14:00)
[2022-02-21] MEDS ORDERED: SODIUM CHLORIDE FLUSH 10 ML SYR INJ PRN (14:00)
[2022-02-21] MEDS: LEVOFLOXACIN 750MG/D5W 150ML 150 ML IV SCH (14:30)
[2022-02-21] MEDS: ATENOLOL 50 MG TAB PO SCH (14:30)
[2022-02-21] MEDS: HYDRALAZINE HCL 25 MG TAB PO SCH (16:37)
[2022-02-21 20:00] VITALS: BP 171/55
[2022-02-21 20:30] VITALS: BP 171/55
[2022-02-21] MEDS ORDERED: CLOPIDOGREL75 MG PO (21:41)
[2022-02-21] MEDS ORDERED: TRAMADOL HCL 50 MG TAB PO PRN (22:30)
[2022-02-21] MEDS ORDERED: DEXTROSE 50% SYRINGE 50 ML IV PRN (22:30)
[2022-02-21] MEDS ORDERED: HYDRALAZINE HCL 100 MG TABLET PO SCH (22:30)
[2022-02-21] MEDS ORDERED: ALBUTEROL SULFATE HFA 8GM INHALATION AEROSOL INH PRN (22:30)
[2022-02-21] MEDS ORDERED: ATENOLOL 50 MG TAB PO SCH (22:30)
[2022-02-21] MEDS: INSULIN LISPRO 100 UNIT/1 ML 3ML VIAL SQ SCH (23:30)
[2022-02-21] MEDS: ATORVASTATIN 20 MG TAB PO SCH (23:30)
[2022-02-22] VITALS (9 sets, daily range): BP systolic 140–191; BP diastolic 44–64
[2022-02-22 05:54] LABS: BASOPHILS % 0.2 % (0.0-1.0); EOSINOPHILS % 0.1 % (0.0-6.0); HEMOGLOBIN 11.2 g/dL (14.0-18.0); LYMPHOCYTES # (AUTO) 1.8 (1.0-3.2); LYMPHOCYTES % 14.9 % (18.0-39.1); MEAN CORPUSCULAR HEMOGLOBIN 28.4 pg (28-32); MEAN CORPUSCULAR HGB CONC 32.9 g/dL (31-35); MEAN CORPUSCULAR VOLUME 86.1 fL (81-99); MONOCYTES # (AUTO) 1.6 (0.2-0.8); MONOCYTES % 13.3 % (4.4-11.3); NEUTROPHILS # (AUTO) 8.6 (2.1-6.9); NEUTROPHILS % 70.8 % (38.7-80.0); PLATELET COUNT 366 x10e3/uL (140-360); RED BLOOD COUNT 3.95 x10e6/uL (4.3-5.7); RED CELL DISTRIBUTION WIDTH 15.6 % (11.7-14.4)
[2022-02-22 06:13] LABS: ANION GAP 17.9 mmol/L (8-16); CALCIUM 8.9 mg/dL (8.4-10.2); CREATININE, SERUM 3.11 mg/dL (0.72-1.25); POTASSIUM 3.9 mmol/L (3.5-5.1)
[2022-02-22] MEDS: INSULIN LISPRO 100 UNIT/1 ML 3ML VIAL SQ SCH ×4 (07:30→22:08)
[2022-02-22] MEDS: LEVOFLOXACIN 750MG/D5W 150ML 150 ML IV SCH (08:52)
[2022-02-22] MEDS: CLOPIDOGREL BISULFATE 75 MG TAB PO SCH (08:54)
[2022-02-22] MEDS: GABAPENTIN 300 MG CAP PO SCH ×2 (08:54→16:50)
[2022-02-22] MEDS: NIFEDIPINE CR 30 MG TAB PO SCH (08:54)
[2022-02-22] MEDS: ATENOLOL 50 MG TAB PO SCH (08:55)
[2022-02-22] MEDS: HYDRALAZINE HCL 25 MG TAB PO SCH ×3 (08:55→21:59)
[2022-02-22] MEDS: ATORVASTATIN 20 MG TAB PO SCH (08:55)
[2022-02-22] MEDS ORDERED: OLMESARTAN 20 MG TAB PO SCH (09:00)
[2022-02-22] MEDS ORDERED: ATENOLOL 50 MG TAB PO SCH (09:00)
[2022-02-22] MEDS ORDERED: SODIUM CHLORIDE 0.9% 250ML 250 ML ONE (09:42)
[2022-02-22] MEDS ORDERED: METHYLPREDNISOLONE SOD SUCC 40 MG/ML VIAL 1ML IV SCH (09:45)
[2022-02-22] MEDS ORDERED: HYDRALAZINE HCL 20 MG/ML VIAL IV PRN (10:15)
[2022-02-22] MEDS ORDERED: LEVOFLOXACIN 250MG/D5W 50ML 50 ML IV SCH (14:00)
[2022-02-22] MEDS: ZOLPIDEM TARTRATE 5 MG TAB PO PRN (21:57)
[2022-02-22] MEDS: LATANOPROST(OPTH) 2.5 ML BTL OP SCH (22:09)
[2022-02-22] MEDS: ALBUTEROL/IPRATROPIUM 3 ML NEB NEB SCH (23:05)
[2022-02-23] VITALS (7 sets, daily range): BP systolic 118–180; BP diastolic 47–65
[2022-02-23] MEDS: ALBUTEROL/IPRATROPIUM 3 ML NEB NEB SCH ×6 (03:02→23:10)
[2022-02-23 04:55] LABS: BASOPHILS % 0.3 % (0.0-1.0); EOSINOPHILS % 0.3 % (0.0-6.0); HEMATOCRIT 34.9 % (38.2-49.6); HEMOGLOBIN 11.6 g/dL (14.0-18.0); LYMPHOCYTES # (AUTO) 2.2 (1.0-3.2); MEAN CORPUSCULAR HEMOGLOBIN 28.6 pg (28-32); MEAN CORPUSCULAR HGB CONC 33.2 g/dL (31-35); MEAN CORPUSCULAR VOLUME 86.2 fL (81-99); MONOCYTES # (AUTO) 1.2 (0.2-0.8); MONOCYTES % 9.5 % (4.4-11.3); NEUTROPHILS # (AUTO) 8.8 (2.1-6.9); NEUTROPHILS % 71.3 % (38.7-80.0); PLATELET COUNT 375 x10e3/uL (140-360); RED BLOOD COUNT 4.05 x10e6/uL (4.3-5.7); RED CELL DISTRIBUTION WIDTH 15.9 % (11.7-14.4)
[2022-02-23 05:24] LABS: ALBUMIN 3.1 g/dL (3.5-5.0); ALBUMIN/GLOBULIN RATIO 0.9 (0.8-2.0); CALCIUM 8.7 mg/dL (8.4-10.2); CREATININE, SERUM 2.65 mg/dL (0.72-1.25)
[2022-02-23] MEDS: HYDRALAZINE HCL 25 MG TAB PO SCH ×3 (05:54→21:36)
[2022-02-23] MEDS ORDERED: METHYLPREDNISOLONE SOD SUCC 40 MG/ML VIAL 1ML IV SCH (09:00)
[2022-02-23] MEDS: NIFEDIPINE CR 30 MG TAB PO SCH (09:21)
[2022-02-23] MEDS: ATENOLOL 50 MG TAB PO SCH (09:22)
[2022-02-23] MEDS: GABAPENTIN 300 MG CAP PO SCH ×2 (09:22→16:10)
[2022-02-23] MEDS: ATORVASTATIN 20 MG TAB PO SCH (09:22)
[2022-02-23] MEDS: CLOPIDOGREL BISULFATE 75 MG TAB PO SCH (09:22)
[2022-02-23] MEDS: INSULIN LISPRO 100 UNIT/1 ML 3ML VIAL SQ SCH ×4 (09:24→21:31)
[2022-02-23] MEDS ORDERED: ONDANSETRON HCL 4 MG ORAL DISINTEGRATING TAB PO PRN (09:45)
[2022-02-23] MEDS ORDERED: LEVOFLOXACIN 250MG/D5W 50ML 50 ML IV SCH (10:00)
[2022-02-23 18:36] LABS: ANION GAP 16.3 mmol/L (8-16); CALCIUM 8.7 mg/dL (8.4-10.2); CREATININE, SERUM 2.58 mg/dL (0.72-1.25); POTASSIUM 4.3 mmol/L (3.5-5.1)
[2022-02-23] MEDS: LATANOPROST(OPTH) 2.5 ML BTL OP SCH (21:35)
[2022-02-23] MEDS: ZOLPIDEM TARTRATE 5 MG TAB PO PRN (23:25)
[2022-02-24] VITALS: BP 141/45
[2022-02-24] MEDS: ALBUTEROL/IPRATROPIUM 3 ML NEB NEB SCH ×3 (03:00→11:05)
[2022-02-24 04:00] VITALS: BP 153/53
[2022-02-24] MEDS: HYDRALAZINE HCL 25 MG TAB PO SCH ×2 (05:39→06:26)
[2022-02-24 08:00] VITALS: BP 153/53
[2022-02-24 08:03] VITALS: BP 158/54
[2022-02-24] MEDS ORDERED: LEVOFLOXACIN 250 MG TAB PO SCH (09:00)
[2022-02-24] MEDS: INSULIN LISPRO 100 UNIT/1 ML 3ML VIAL SQ SCH ×2 (09:16→11:55)
[2022-02-24] MEDS: ATORVASTATIN 20 MG TAB PO SCH (09:17)
[2022-02-24] MEDS: CLOPIDOGREL BISULFATE 75 MG TAB PO SCH (09:17)
[2022-02-24] MEDS: NIFEDIPINE CR 30 MG TAB PO SCH (09:17)
[2022-02-24] MEDS: GABAPENTIN 300 MG CAP PO SCH (09:17)
[2022-02-24] MEDS: ATENOLOL 50 MG TAB PO SCH (09:18)
[2022-02-24] MEDS ORDERED: PREDNISONE5 MG PO (09:33)
[2022-02-24] MEDS ORDERED: Insulin Lispro SQ (09:33)
[2022-02-24] MEDS ORDERED: HYDRALAZINE HCL25 MG PO (09:33)
[2022-02-24] MEDS ORDERED: Levofloxacin PO (09:33)
[2022-02-24 12:02] VITALS: BP 165/56
== END 2022-02-24 12:23 | disposition home or self-care (01) | DRG 191 ==
LOC: ER 10:21 → ERHOLD 14:03 → MED/SURG2 18:23 → OBSVTOIN 02-23 08:10
PROVIDERS: ADMIT Internal Medicine; ATTEND Internal Medicine
DX: J44.1 Chronic obstructive pulmonary disease with (acute) exacerbation (principal); I13.0 Hypertensive heart and chronic kidney disease with heart failure and stage 1 through stage 4 chronic kidney disease, or unspecified chronic kidney disease; I50.22 Chronic systolic (congestive) heart failure; N17.9 Acute kidney failure, unspecified; N18.4 Chronic kidney disease, stage 4 (severe); E11.22 Type 2 diabetes mellitus with diabetic chronic kidney disease; Z79.4 Long term (current) use of insulin; E11.69 Type 2 diabetes mellitus with other specified complication; E78.5 Hyperlipidemia, unspecified; Z20.822 Contact with and (suspected) exposure to COVID-19; E11.51 Type 2 diabetes mellitus with diabetic peripheral angiopathy without gangrene; I48.91 Unspecified atrial fibrillation; D72.829 Elevated white blood cell count, unspecified; T38.0X5A Adverse effect of glucocorticoids and synthetic analogues, initial encounter
CPT/HCPCS: 0223U; 36415; 71045; 76770; 80048; 80053; 82948; 84165; 85025; 86039; 86225; 93005; 94640; 94760; 94799; 99284; G0378; J1956; J2920; J7050

== ENCOUNTER → 2022-03-16 | Outpatient (CLI) | payer MEDICARE, OTHER ==
[~2022-03-16] MED LIST changes: +Insulin Lispro SQ; +Levofloxacin PO; +PREDNISONE5 MG PO
== END ==
LOC: RAD 15:20
PROVIDERS: ATTEND Internal Medicine Critical Care Medicine
DX: J44.9 Chronic obstructive pulmonary disease, unspecified (principal)
CPT/HCPCS: 71046

== ENCOUNTER 2024-03-13 08:54 | Inpatient (IN) | payer MEDICARE ==
[~2024-03-13] VITALS: Ht 182.9 cm; Wt 65.3 kg
[~2024-03-13 08:54] MED LIST changes: +FARXIGA10 MG; +INSULIN LEVIMIR
[2024-03-13 09:10] VITALS: TEMP 98.2
[2024-03-13 09:40] LABS: BASOPHILS # (AUTO) 0.1 (0.0-0.1); BASOPHILS % 0.8 % (0.0-1.0); EOSINOPHILS # (AUTO) 0.6 (0.0-0.4); EOSINOPHILS % 6.3 % (0.0-6.0); HEMATOCRIT 42.2 % (38.2-49.6); HEMOGLOBIN 13.2 g/dL (14.0-18.0); LYMPHOCYTES % 20.8 % (18.0-39.1); MEAN CORPUSCULAR HEMOGLOBIN 28.6 pg (28-32); MEAN CORPUSCULAR HGB CONC 31.3 g/dL (31-35); MEAN CORPUSCULAR VOLUME 91.3 fL (81-99); MONOCYTES # (AUTO) 0.9 (0.2-0.8); MONOCYTES % 9.4 % (4.4-11.3); NEUTROPHILS % 62.4 % (38.7-80.0); PLATELET COUNT 386 x10e3/uL (140-360); RED BLOOD COUNT 4.62 x10e6/uL (4.3-5.7); RED CELL DISTRIBUTION WIDTH 16.8 % (11.7-14.4); WHITE BLOOD COUNT 9.57 x10e3/uL (4.8-10.8)
[2024-03-13 09:52] LABS: INR 1.03; PARTIAL THROMBOPLASTIN TIME 34.1 seconds (23.8-35.5)
[2024-03-13 10:04] LABS: ALBUMIN 4.1 g/dL (3.5-5.0); ANION GAP 18.6 mmol/L (8-16); BILIRUBIN,TOTAL 0.5 mg/dL (0.2-1.2); CREATININE, SERUM 3.22 mg/dL (0.72-1.25); POTASSIUM 3.6 mmol/L (3.5-5.1); TOTAL PROTEIN 8.2 g/dL (6.5-8.1)
[2024-03-13 10:10] LABS: TROPONIN I 0.043 ng/mL (0-0.300)
[2024-03-13] MEDS: SODIUM CHLORIDE 0.9% 500ML 500 ML IV ONE (10:35)
[2024-03-13] MEDS: ONDANSETRON HCL INJ 2MG/ML 2ML 2 MG/ML VIAL IV STA (10:35)
[2024-03-13] MEDS: HYDRALAZINE HCL 20 MG/ML VIAL IV STA (11:40)
[2024-03-13 11:55] LABS: BILIRUBIN,URINE NEGATIVE (NEGATIVE); CLARITY,URINE CLEAR (CLEAR); COLOR,URINE YELLOW (YELLOW); GLUCOSE, URINE 2+ (NEGATIVE); KETONES,URINE TRACE (NEGATIVE); LEUKOCYTE ESTERASE ,URINE NEGATIVE (NEGATIVE); NITRITE,URINE NEGATIVE (NEGATIVE); PH,URINE 5.5 (5 - 7); PROTEIN,URINE DIPSTICK 1+ (NEGATIVE); URINE UROBILINOGEN 0.2 mg/dL (0.2 - 1)
[2024-03-13 12:28] LABS: BACTERIA,URINE RARE /HPF; EPITHELIAL CELLS,URINE RARE /LPF; WBC,URINE (MAN) 0-5 /HPF (0-5)
[2024-03-13 13:25] LABS: INFLUENZAE A&B ANTIGEN (RAPID) NEGATIVE (NEGATIVE); RESPIRATORY SYNC. VIRUS NEGATIVE (NEGATIVE)
[2024-03-13] MEDS ORDERED: Morphine 2mg Syringe 2 MG/ML SYR IV PRN (13:30)
[2024-03-13] MEDS ORDERED: ONDANSETRON HCL INJ 2MG/ML 2ML 2 MG/ML VIAL IV PRN (13:30)
[2024-03-13] MEDS: NIFEDIPINE CR 30 MG TAB PO ONE (13:50)
[2024-03-13] MEDS: SODIUM CHLORIDE 0.9% 1000ML 1,000 ML IV SCH (13:54)
[2024-03-13] MEDS ORDERED: ACETAMINOPHEN 325 MG TAB PO PRN (18:15)
[2024-03-13 19:00] LABS: TROPONIN I 0.064 ng/mL (0-0.300)
[2024-03-13 20:00] VITALS: PULSE 52; RESP 18
[2024-03-13 21:07] VITALS: BP 161/51; PULSE 58; RESP 18; TEMP 98.4; O2SAT 98
[2024-03-13] MEDS: POLYETHYLENE GLYCOL 3350 17 GM PACK PO PRN (22:19)
[2024-03-13 22:30] VITALS: BP 161/51; PULSE 50; RESP 18; TEMP 98.4; O2SAT 100
[2024-03-13 23:15] VITALS: PULSE 53; RESP 16; O2SAT 100
[2024-03-13] MEDS ORDERED: SUVOREXANT 20 MG PO SCH (23:30)
[2024-03-13] MEDS ORDERED: TRAMADOL HCL 50 MG TAB PO PRN (23:30)
[2024-03-13 23:45] VITALS: BP 168/56; PULSE 53; RESP 18; TEMP 98.3; O2SAT 100
[2024-03-14] VITALS (9 sets, daily range): BP systolic 121–174; BP diastolic 54–80; PULSE 53–107; RESP 16–19; TEMP 97.6–98.9; O2SAT 95–99
[2024-03-14] MEDS: ZOLPIDEM TARTRATE 5 MG TAB PO PRN (00:43)
[2024-03-14 02:48] LABS: TROPONIN I 0.056 ng/mL (0-0.300)
[2024-03-14] MEDS ORDERED: DEXTROSE 50% SYRINGE 50 ML IV PRN (06:00)
[2024-03-14 06:08] LABS: BASOPHILS % 0.3 % (0.0-1.0); EOSINOPHILS # (AUTO) 0.9 (0.0-0.4); EOSINOPHILS % 8.5 % (0.0-6.0); HEMATOCRIT 37.1 % (38.2-49.6); HEMOGLOBIN 11.7 g/dL (14.0-18.0); LYMPHOCYTES # (AUTO) 1.9 (1.0-3.2); LYMPHOCYTES % 18.1 % (18.0-39.1); MEAN CORPUSCULAR HEMOGLOBIN 28.4 pg (28-32); MEAN CORPUSCULAR HGB CONC 31.5 g/dL (31-35); MONOCYTES # (AUTO) 1.5 (0.2-0.8); MONOCYTES % 14.1 % (4.4-11.3); NEUTROPHILS # (AUTO) 6.2 (2.1-6.9); NEUTROPHILS % 58.7 % (38.7-80.0); PLATELET COUNT 332 x10e3/uL (140-360); RED BLOOD COUNT 4.12 x10e6/uL (4.3-5.7); RED CELL DISTRIBUTION WIDTH 16.5 % (11.7-14.4); WHITE BLOOD COUNT 10.54 x10e3/uL (4.8-10.8)
[2024-03-14 06:36] LABS: ALBUMIN 3.4 g/dL (3.5-5.0); ALBUMIN/GLOBULIN RATIO 0.9 (0.8-2.0); ANION GAP 18.5 mmol/L (8-16); BILIRUBIN,TOTAL 0.3 mg/dL (0.2-1.2); CALCIUM 9.3 mg/dL (8.4-10.2); CREATININE, SERUM 3.46 mg/dL (0.72-1.25); POTASSIUM 3.5 mmol/L (3.5-5.1)
[2024-03-14 06:43] LABS: TROPONIN I 0.047 ng/mL (0-0.300)
[2024-03-14 06:53] LABS: CHOL/HDL RATIO 4.1 (3.9-4.7); MAGNESIUM 2.1 MG/DL (1.3-2.1); PHOSPHORUS 3.3 MG/DL (2.3-4.7)
[2024-03-14 06:59] LABS: FREE T4 (FREE THYROXINE) 1.2 ng/dL (0.8-1.8); THYROID STIMULATING HORMONE 1.08 uIU/mL (0.350-4.940)
[2024-03-14] MEDS: ALBUTEROL 90 MCG/ACT INHALER INH PRN (08:06)
[2024-03-14] MEDS: OLMESARTAN 20 MG TAB PO SCH (08:20)
[2024-03-14] MEDS: TORSEMIDE 10 MG TAB PO SCH (08:21)
[2024-03-14] MEDS: GABAPENTIN 300 MG CAP PO SCH (08:22)
[2024-03-14] MEDS: NIFEDIPINE CR 30 MG TAB PO SCH (08:22)
[2024-03-14] MEDS: DOCUSATE SODIUM 100 MG CAP PO SCH (08:23)
[2024-03-14] MEDS: ATORVASTATIN 20 MG TAB PO SCH (08:23)
[2024-03-14] MEDS: INSULIN LISPRO 100 UNIT/1 ML 3ML VIAL SQ SCH (08:34)
[2024-03-14] MEDS ORDERED: NIFEDIPINE CR 30 MG TAB PO SCH (09:00)
[2024-03-14] MEDS: METOPROLOL TARTRATE 25 MG TAB PO SCH (17:46)
[2024-03-14] MEDS: LATANOPROST(OPTH) 2.5 ML BTL OU SCH (22:13)
[2024-03-15] VITALS (7 sets, daily range): BP systolic 152–164; BP diastolic 54–76; PULSE 52–100; RESP 17–20; TEMP 98.3–98.6; O2SAT 96–100
[2024-03-15 06:09] LABS: ALBUMIN 3.1 g/dL (3.5-5.0); ALBUMIN/GLOBULIN RATIO 0.9 (0.8-2.0); ANION GAP 14.4 mmol/L (8-16); BILIRUBIN,TOTAL 0.3 mg/dL (0.2-1.2); CALCIUM 8.7 mg/dL (8.4-10.2); CREATININE, SERUM 3.43 mg/dL (0.72-1.25); POTASSIUM 3.4 mmol/L (3.5-5.1); TOTAL PROTEIN 6.5 g/dL (6.5-8.1)
[2024-03-15] MEDS: POTASSIUM CHLORIDE 20 MEQ TAB CR PO ONE (12:00)
[2024-03-15] MEDS: APIXABAN 5 MG TABLET PO ONE (20:49)
[2024-03-16] VITALS (10 sets, daily range): BP systolic 153–183; BP diastolic 50–64; PULSE 49–68; RESP 17–19; TEMP 97.5–99.5; O2SAT 95–100
[2024-03-16] MEDS: HYDRALAZINE HCL 20 MG/ML VIAL IV PRN (00:57)
[2024-03-16] MEDS: APIXABAN 5 MG TABLET PO SCH (09:22)
[2024-03-16] MEDS: SODIUM CHLORIDE 0.9% 1000ML 1,000 ML IV SCH (17:50)
[2024-03-17] VITALS (7 sets, daily range): BP systolic 145–170; BP diastolic 50–55; PULSE 47–104; RESP 17–22; TEMP 97.9–98.8; O2SAT 96–100
[2024-03-17 06:52] LABS: ALBUMIN/GLOBULIN RATIO 0.9 (0.8-2.0); ANION GAP 13.8 mmol/L (8-16); BILIRUBIN,TOTAL 0.3 mg/dL (0.2-1.2); CALCIUM 8.6 mg/dL (8.4-10.2); CREATININE, SERUM 3.52 mg/dL (0.72-1.25); POTASSIUM 3.8 mmol/L (3.5-5.1); TOTAL PROTEIN 6.2 g/dL (6.5-8.1)
[2024-03-17] MEDS ORDERED: LOPRESSOR25 MG PO (14:31)
[2024-03-17] MEDS ORDERED: GABAPENTIN300 MG PO (14:31)
[2024-03-17] MEDS ORDERED: Insulin Lispro SQ (14:31)
== END 2024-03-17 16:38 | disposition home or self-care (01) | DRG 444 ==
LOC: ER 09:02 → ERHOLD 13:28 → MED/SURG3 20:48
PROVIDERS: ADMIT Internal Medicine; ATTEND Internal Medicine
DX: K80.20 Calculus of gallbladder without cholecystitis without obstruction (principal); E43 Unspecified severe protein-calorie malnutrition; N17.9 Acute kidney failure, unspecified; Z68.1 Body mass index [BMI] 19.9 or less, adult; R62.7 Adult failure to thrive; R00.1 Bradycardia, unspecified; N18.30 Chronic kidney disease, stage 3 unspecified; E86.0 Dehydration; I48.0 Paroxysmal atrial fibrillation; E11.22 Type 2 diabetes mellitus with diabetic chronic kidney disease; E11.65 Type 2 diabetes mellitus with hyperglycemia; E11.40 Type 2 diabetes mellitus with diabetic neuropathy, unspecified; E11.51 Type 2 diabetes mellitus with diabetic peripheral angiopathy without gangrene; Z79.4 Long term (current) use of insulin; J45.909 Unspecified asthma, uncomplicated; F17.210 Nicotine dependence, cigarettes, uncomplicated; J44.9 Chronic obstructive pulmonary disease, unspecified
CPT/HCPCS: 36415; 71045; 74176; 76705; 76770; 80053; 80061; 81001; 82550; 82948; 83036; 83690; 83735; 83880; 84100; 84439; 84443; 84484; 85025; 85610; 85730; 87400; 87420; 93005; 93306; 94799; 96361; 99284; J0360; J2405; J2470; J7030; J7040; U0002